=== PATIENT | male | born 1990 | race African-American/Black ===

== ENCOUNTER 2025-02-22 12:56 | Emergency (ER) | payer MEDICAID, OTHER ==
[~2025-02-22] VITALS: Ht 162.6 cm; Wt 75.9 kg
[2025-02-22 13:20] VITALS: BP 108/81; TEMP 36.8; O2SAT 98
[2025-02-22 13:22] VITALS: PULSE 96; RESP 16; O2SAT 96
== END 2025-02-22 15:24 | disposition left against medical advice (07) ==
LOC: ER 12:56
DX: S62.604A Fracture of unspecified phalanx of right ring finger, initial encounter for closed fracture (principal); Z53.21 Procedure and treatment not carried out due to patient leaving prior to being seen by health care provider; W49.04XA Ring or other jewelry causing external constriction, initial encounter; Y93.89 Activity, other specified; Y92.89 Other specified places as the place of occurrence of the external cause; Y99.8 Other external cause status

== ENCOUNTER 2025-02-22 22:19 | Emergency (ER) | payer MEDICAID ==
[~2025-02-22] VITALS: Ht 165.1 cm; Wt 77.1 kg
[2025-02-22 22:49] VITALS: O2SAT 97
[2025-02-22 22:51] VITALS: BP 119/73; PULSE 87; RESP 16; TEMP 37; O2SAT 100
== END 2025-02-23 02:47 | disposition left against medical advice (07) ==
LOC: ER 22:19
DX: S62.608A Fracture of unspecified phalanx of other finger, initial encounter for closed fracture (principal); Z53.21 Procedure and treatment not carried out due to patient leaving prior to being seen by health care provider; X58.XXXA Exposure to other specified factors, initial encounter; Y93.89 Activity, other specified; Y92.89 Other specified places as the place of occurrence of the external cause; Y99.8 Other external cause status